=== PATIENT | female | born 1975 | race Caucasian/White ===

== ENCOUNTER → 2020-09-11 13:59 | Outpatient (CLI) | payer OTHER, SELFPAY | PROVIDERS: PCP Family Medicine; Visit Provider Family Medicine | DX: Z03.818 Encounter for observation for suspected exposure to other biological agents ruled out (principal) | CPT/HCPCS: U0003 ==

== ENCOUNTER → 2021-03-13 15:39 | Outpatient (CLI) | payer OTHER, SELFPAY ==
--- NOTE | 2021-03-13 15:39 | MM_ITS ---
PROCEDURE INFORMATION: Exam: MG Screening 3D Mammography Exam date and time: 03/13/2021 3:39 PM Age: 46 years old Clinical indication: Encounter for screening mammogram for malignant neoplasm of breast TECHNIQUE: Imaging protocol: Screening tomosynthesis and 2D mammography including computer-aided detection (CAD) when performed. COMPARISON: No relevant prior studies available. FINDINGS: MAMMOGRAPHY: Breast composition: The breast tissue is composed of scattered areas of fibroglandular density. Mass: None. Architectural distortion: None. Calcifications: No suspicious calcifications. Asymmetric density: None. Skin thickening: None. Axillary adenopathy: None. Implants: Subpectoral saline breast implants are present. IMPRESSION: No mammographic evidence of malignancy. Annual screening is recommended unless otherwise clinically indicated. ASSESSMENT: BI-RADS Category 1: Negative
== END ==
PROVIDERS: PCP Family Medicine; Visit Provider Obstetrics & Gynecology
DX: Z12.31 Encounter for screening mammogram for malignant neoplasm of breast (principal)
CPT/HCPCS: 77063; 77067

== ENCOUNTER → 2022-09-24 10:40 | Outpatient (CLI) | payer OTHER, SELFPAY ==
[2022-09-25 09:13] LABS: Estradiol <5.0 pg/mL (.); LH 61.9 mIU/mL (.)
== END ==
PROVIDERS: PCP Family Medicine; Visit Provider Nurse Practitioner Obstetrics & Gynecology
DX: N95.1 Menopausal and female climacteric states (principal)
CPT/HCPCS: 36415; 82670; 83001; 83002

== ENCOUNTER 2023-11-27 16:24 | Outpatient (CLI) | payer OTHER, SELFPAY ==
--- NOTE | 2023-11-27 16:32 | XR_ITS ---
PROCEDURE INFORMATION: Exam: XR Right Hip Exam date and time: 11/27/2023 4:34 PM Age: 48 years old Clinical indication: Injury or trauma; Blunt trauma (contusions or hematomas); Right; Hip; Patient HX: Fall Thursday TECHNIQUE: Imaging protocol: Radiologic exam of the right hip. Views: 2 or 3 views hip with pelvis when performed. COMPARISON: CR XR LUMBAR SPINE MIN 4V 11/27/2023 4:34 PM FINDINGS: Tubes, catheters and devices: Essure implants bilaterally. Bones/joints: Unremarkable. No acute fracture. Soft tissues: Unremarkable. IMPRESSION: No fracture identified.
--- NOTE | 2023-11-27 16:33 | XR_ITS ---
PROCEDURE INFORMATION: Exam: XR Lumbosacral Spine Exam date and time: 11/27/2023 4:34 PM Age: 48 years old Clinical indication: Injury or trauma; Blunt trauma (contusions or hematomas); Patient HX: Fall Thursday TECHNIQUE: Imaging protocol: Radiologic exam of the lumbosacral spine. Views: 4 or 5 views. COMPARISON: CR XR HIP RT 2-3V W/PELVIS 11/27/2023 4:34 PM FINDINGS: Bones/joints: Normal. No acute fracture. Normal alignment. Soft tissues: Unremarkable. Vasculature: Atherosclerotic vascular calcifications. IMPRESSION: No acute traumatic injury identified.
--- NOTE | 2023-11-27 16:33 | XR_ITS ---
PROCEDURE INFORMATION: Exam: XR Thoracic Spine Exam date and time: 11/27/2023 4:34 PM Age: 48 years old Clinical indication: Injury or trauma; Blunt trauma (contusions or hematomas); Patient HX: Fall Thursday; Additional info: Fall, pain TECHNIQUE: Imaging protocol: Radiologic exam of the thoracic spine. Views: 2 views. COMPARISON: CR XR LUMBAR SPINE MIN 4V 11/27/2023 4:34 PM FINDINGS: Bones/joints: Normal. No acute fracture. Normal alignment. Soft tissues: Unremarkable. IMPRESSION: No acute findings.
== END 2023-11-27 23:59 ==
LOC: RAD 16:25
PROVIDERS: PCP Family Medicine; Visit Provider Nurse Practitioner Family
DX: M25.551 Pain in right hip (principal); M54.50 Low back pain, unspecified; M54.6 Pain in thoracic spine
CPT/HCPCS: 72070; 72110; 73502

== ENCOUNTER 2024-01-23 20:15 | Emergency (ER) | payer OTHER, SELFPAY ==
[2024-01-23] VITALS (8 sets, daily range): BP systolic 111–139; BP diastolic 56–76; PULSE 73–87; RESP 13–22; TEMP 36.6–36.9; O2SAT 97–100; BMI 22.8
--- NOTE | 2024-01-23 20:30 | XR_ITS ---
PROCEDURE INFORMATION: Exam: XR Chest Exam date and time: 01/23/2024 8:45 PM Age: 48 years old Clinical indication: Other: Abdominal pain; Prior surgery; Surgery date: 6+ months; Surgery type: Breast implants; Additional info: Abd pain to chest TECHNIQUE: Imaging protocol: Radiologic exam of the chest. Views: 1 view. COMPARISON: CR XR THORACIC SPINE 2V 11/27/2023 4:34 PM FINDINGS: Lungs: No evidence of acute pulmonary disease or infiltrates Pleural spaces: No large effusion or pneumothorax. Heart/Mediastinum: No evidence of mediastinal widening or cardiac silhouette enlargement; the mediastinum and heart appear within normal limits for contour and size. Bones/joints: No evidence of acute osseous abnormalities within the visualized portions of the thoracic spine and ribs. Osseous structures appear appropriate for patient age. Other findings: The examination is limited by under penetration. IMPRESSION: No dense parenchymal consolidation, pleural effusion, or pneumothorax.
[2024-01-23 20:38] LABS: Microscopic, Urine URINE MICROSCOPIC (MICROSCOPIC)
--- NOTE | 2024-01-23 20:40 | ECG_ITS ---
APPROVED REPORT Exam: Resting ECG HR:79 bpm ECG Measurements Heart Rate 79 AXES VT 164 P 79 QRSd 92 QRS 72 QT 367 T 77 QTc 401 Conclusion SINUS RHYTHM INCOMPLETE RIGHT BUNDLE BRANCH BLOCK [90+ ms QRS DURATION, TERMINAL R IN V1/V2, 40+ ms S IN I/aVL/V4/V5/V6] BORDERLINE ECG UNCONFIRMED REPORT Electronically signed by : DOMINICK BURCH, 01/24/2024 05:54:47
[2024-01-23 20:42] LABS: Appearance,Urine CLEAR (Clear); Bilirubin,Urine Negative (Negative); Blood, Urine Negative (Negative); Color,Urine YELLOW (Yellow); Glucose,Urine (UA) Negative (Negative); Ketones,Urine Negative (Negative); Leukocyte Esterase,Urine Negative (Negative); Nitrate,Urine Negative (Negative); Protein,Urine Negative (Negative); Specific Gravity, Urine >= 1.030 (1.005-1.030); Urobilinogen,Urine 0.2 EU/dl (0.2)
[2024-01-23] MEDS: BELLADONNA ALKALOIDS 60 ML ML PO (20:44)
[2024-01-23] MEDS: KETOROLAC 30MG/ML VIAL 15 MG IV (20:46)
[2024-01-23 20:48] LABS: Basophils # 0.2 K/mm3 (0-0.2); Basophils % 1.7 % (0.1-2.0); Eosinophils # 0.2 K/mm3 (0.0-0.4); Eosinophils % 1.5 % (0.1-12.0); Hematocrit 48.8 % (37.0-47.0); Hemoglobin 15.5 g/dL (12.2-16.2); Lymphocytes % 28.1 % (10-50); Mean Corpuscular HGB Conc 31.8 g/dL (31.8-35.4); Mean Corpuscular Volume 94.5 fl (81-99); Monocytes # 0.4 K/mm3 (0.1-1.0); Monocytes % 3.9 % (1.7-9.3); Neutrophils % 64.8 % (37.0-80.0); Platelet Count 309 K/mm3 (142-424); Red Blood Count 5.16 M/mm3 (4.20-5.40); Red Cell Distribution Width 12.6 % (11.5-17.5); White Blood Count 10.8 K/mm3 (4.8-10.8)
[2024-01-23 20:49] LABS: Chloride 104 mmol/L (98-107); Potassium 3.9 mmoL/L (3.5-5.1); Sodium 138 mmol/L (136-145)
--- NOTE | 2024-01-23 20:50 | ED_ITS ---
Discharge Plan Disposition Patient Disposition: Home, Self-Care Prescriptions Prescriptions: No Action Prilosec OTC 20 mg tablet,delayed release (DR/EC) 20 mg PO DAILY escitalopram oxalate [Lexapro] 20 mg tablet 20 mg PO DAILY Qty: 30 5RF estradiol [Estrace] 2 mg tablet 2 mg PO DAILY Qty: 30 3RF Lo Loestrin Fe 1 mg-10 mcg (24)/10 mcg (2) tablet 0.5 tab PO DAILY Qty: 28 3RF CombiPatch 0.05-0.25 mg/24 hr patch semiweekly 1 patch topical .twice weekly Qty: 8 11RF Referrals Follow up/Referrals: Anuradha Benitez MD [Primary Care Provider] - See instructions Activity Restrictions/Add. Instructions Additional Instructions/Restrictions: Call your family doctor to establish care for this visit to the emergency department and schedule follow-up within 48 hours to ensure improvement. If you have any worsening of your condition or any other concerning signs or symptoms, return to the emergency department or your primary care doctor for further evaluation. If you stop passing gas, unable to have bowel movements, continue vomiting without improvement, or have intolerable abdominal pain, return to the ER. Clinical Impressions Clinical Impression: Abdominal pain Instructions Patient Instructions: DI for Acute Abdominal Pain Discharge ED Provider: Bk Lyons General Adult HPI General Chief complaint: Abdominal Pain Stated complaint: Constant stomach pain,vomiting Time Seen by Provider: 01/23/24 20:23 Mode of Arrival: Ambulatory Source of Information: Patient Limitations: No Limitations Description of Symptoms (Recalled from ER Triage Doc. by RN): Pt has epigastric pain X 1 day. States it is a dull, throbbing, burning type of pain. Pt is A&O*4. History of Present Illness HPI narrative: 48-year-old female history of hypertension, tobacco use presenting with abdominal pain. Patient states that abdominal pain started this morning, 3. Mostly in epigastrium and right upper quadrant, radiates up toward her jaw. It is burning/sharp, intermittent, not made better or worse by anything in particular, not positional. Not associate with shortness of breath, fevers, chills, diarrhea, constipation, dysuria, hematuria, abnormal vaginal discharge or bleeding. Patient does state that she had had of nonbloody vomiting just prior to arrival. No sick contacts he knows of Please note that above description of symptoms, in this electronic medical record under categorization of recalled from ER triage doctor by RN are reflective of an initial nursing assessment, however, is not reflective of my full history and physical exam that was personally taken and clarified. Consequentially, this preceding description of symptoms, which may include the patient's categorized chief complaint in the EMR, do not reflect my personal clinical impression, and the ultimate description of history of present illness and patient stated complaints should be deferred to this section of the note. Unless stated otherwise or congruent with this section of the note, additional signs, symptoms, or incongruence should be interpreted as inaccurate with my clinical impression. Related Data Home Medications Medication Instructions Recorded Confirmed omeprazole magnesium 20 mg 20 mg PO DAILY 11/07/18 01/23/24 tablet,delayed release (Prilosec OTC) Previous Rx's Medication Instructions Recorded norethindrone 1 mg-ethinyl 0.5 tab PO DAILY #28 tabs 03/12/23 estradiol 10 mcg (24)-iron 10 mcg(2) tablet (Lo Loestrin Fe) escitalopram oxalate 20 mg tablet 20 mg PO DAILY #30 tabs 11/02/23 (Lexapro) estradiol 2 mg tablet (Estrace) 2 mg PO DAILY #30 tabs 11/02/23 estradiol 0.05 mg-norethindrone 1 patch topical .twice weekly #8 ea 11/25/23 0.25 mg/24 hr semiwkly transderm patch (CombiPatch) Allergies Allergy/AdvReac Type Severity Reaction Status Date / Time Penicillins Allergy Mild Verified 11/02/23 15:47 [facility] Disclaimer: The information contained in this section may have been updated after the patient was seen, as this information can be updated by other users. Medical History Generalized anxiety disorder Major depressive disorder Surgical History History of bilateral tubal ligation History of D&C History of endometrial ablation Family History Other Diabetes Social History Smoking Status: Current every day smoker tobacco type: cigarettes packs per day: 1 alcohol intake: never substance use type: denies use current occupational status: employed Travel in the last 8 weeks: None household members: family housing: house number of children: 2 ROS Obtained: Yes All systems reviewed & no additional complaints except as documented Physical Exam General General appearance: alert and in no apparent distress Head Head exam: atraumatic and normocephalic Eye Eye exam: Present normal appearance, PERRL and EOMI ENT ENT exam: Present mucous membranes moist Neck Neck exam: Present normal inspection, full ROM and trachea midline Respiratory Respiratory exam: Absent respiratory distress, wheezes, stridor, accessory muscle use or prolonged expiratory phase Cardiovascular Cardiovascular exam: Present regular rate and normal rhythm Abdominal Exam Abdominal exam: Present soft and tenderness; Absent distention, guarding, rebound or rigidity Abdominal tenderness: Present RUQ, LUQ, epigastrium and mild Extremities Exam Extremities exam: Absent edema Neurological Exam Neurological exam: Present alert, oriented X3, CN II-XII intact and normal gait; Absent motor sensory deficit Skin Skin exam: Present warm and dry; Absent diaphoresis or erythema Medical Decision Making Medical Records Medical records reviewed: Yes I reviewed the patient's medical records. Kaushik Inquiry Pt receiving controlled substance: No Kaushik was queried for this patient: No Vital Signs: 01/23/24 20:17 01/23/24 20:27 01/23/24 20:43 Temperature 97.8 F Temperature Source Oral Pulse Rate 87 78 Pulse Rate [Left] 86 Respiratory Rate 19 20 22 Blood Pressure 127/56 L 111/60 Blood Pressure [Right Arm] 127/56 L Blood Pressure Mean 72 76 Blood Pressure Mean [Right Arm] 79 02 Sat by Pulse Oximetry 99 98 100 Oxygen Delivery Method Room Air Room Air Room Air 01/23/24 21:00 01/23/24 21:30 01/23/24 21:45 Temperature Temperature Source Pulse Rate 73 75 78 Pulse Rate [Left] Respiratory Rate 14 22 13 Blood Pressure 124/76 Blood Pressure [Right Arm] Blood Pressure Mean 92 Blood Pressure Mean [Right Arm] 02 Sat by Pulse Oximetry 98 97 97 Oxygen Delivery Method 01/23/24 22:00 01/23/24 23:01 Temperature 98.4 F Temperature Source Pulse Rate 77 75 Pulse Rate [Left] Respiratory Rate 14 16 Blood Pressure 127/73 139/75 Blood Pressure [Right Arm] Blood Pressure Mean 90 Blood Pressure Mean [Right Arm] 02 Sat by Pulse Oximetry 98 Oxygen Delivery Method Room Air Room Air Lab Data Lab Results 01/23/24 20:30: Urine Color Yellow, Urine Appearance Clear, Urine pH 6.0, Ur Specific [place] >= 1.030, Urine Protein Negative, Urine Glucose (UA) Negative, Urine Ketones Negative, Urine Blood Negative, Urine Nitrate Negative, Urine Bilirubin Negative, Urine Urobilinogen 0.2, Ur Leukocyte Esterase Negative, Urine RBC None, Urine WBC 5-10, Ur Squamous Epith Cells 10-20, Amorphous Sediment 1+, Urine Bacteria 2+ 01/23/24 20:32: WBC 10.8, RBC 5.16, Hgb 15.5, Hct 48.8 H, MCV 94.5, MCH 30.0, MCHC 31.8, RDW 12.6, Plt Count 309, MPV 8.0, Neut % (Auto) 64.8, Lymph % (Auto) 28.1, [place] % (Auto) 3.9, Eos % (Auto) 1.5, Baso % (Auto) 1.7, Neut # (Auto) 7.0, Lymph # (Auto) 3.0, [place] # (Auto) 0.4, Eos # (Auto) 0.2, Baso # (Auto) 0.2, Sodium 138, Potassium 3.9, Chloride 104, Carbon Dioxide 29, Anion Gap 8.9, BUN 14, Creatinine 0.80, Estimated Creat Clear 92, Estimated GFR 77, Est GFR ( Amer) 93, Glucose 91, Calcium 9.6, Total Bilirubin 0.4, AST 26, ALT 22, Alkaline Phosphatase 82, Troponin I < 0.01, Total Protein 7.2, Albumin 4.6, Globulin 2.6, Albumin/Globulin Ratio 1.8, Lipase 118 01/23/24 20:32 01/23/24 20:32 Orders (Tests/Meds): ED MEDICATIONS Discontinued Medications Generic Name Dose Route Start Last Admin Trade Name Freq PRN Reason Stop Dose Admin Acetaminophen 1,000 mg 01/23/24 21:47 01/23/24 21:53 Acetaminophen 1,000mg/100ml Vial IV 01/23/24 21:48 1,000 mg ONCE ONE Administration Belladonna Alkaloids 60 ml 01/23/24 20:31 01/23/24 20:44 Belladonna Alkaloids 60 Ml Ml PO 01/23/24 20:32 60 ml ONCE ONE Administration Iopamidol 75 ml 01/23/24 22:39 01/23/24 22:40 Iopamidol-370 (76%);100ml Bottle IV 01/23/24 22:40 75 ml ONCE ONE Administration Ketorolac Tromethamine 15 mg 01/23/24 20:31 01/23/24 20:46 Ketorolac 30mg/Ml Vial IV 01/23/24 20:32 15 mg ONCE ONE Administration Morphine Sulfate 4 mg 01/23/24 22:12 01/23/24 22:20 Morphine 4mg/Ml Syringe IV 01/23/24 22:13 4 mg ONCE ONE Administration Sodium Chloride 10 ml 01/23/24 22:39 01/23/24 22:40 Sodium Chloride 0.9% 10ml Syr (Rad Only) IV 01/23/24 22:40 10 ml ONCE ONE Administration ORDERS Category Date Time Status CT abdomen pelvis w con Stat Cat Scan 01/23/24 22:12 Completed POCUS Point of Care (ER Only) Stat Exams 01/23/24 20:31 Ordered XR chest portable Stat Exams 01/23/24 20:30 Completed Complete Blood Count Auto Diff Stat Lab 01/23/24 20:32 Completed Comprehensive Metabolic Panel Stat Lab 01/23/24 20:32 Completed Lipase Stat Lab 01/23/24 20:32 Completed Troponin I Q3H Lab 01/23/24 23:30 Ordered Troponin I Stat Lab 01/23/24 20:32 Completed Urinalysis and Microscopic Stat Lab 01/23/24 20:30 Completed Urine Culture Stat Micro 01/23/24 20:30 Received HEART Score History (anamnesis): Slightly suspicious ECG: Normal Age: 45-65 years Risk factors: 1-2 risk factors Troponin: </= normal limit HEART Score: 2 Medical Decision Narrative: 48-year-old female history of hypertension, tobacco use presenting with abdominal pain. Patient states that abdominal pain started this morning, 01/22. Mostly in epigastrium and right upper quadrant, radiates up toward her jaw. It is burning/sharp, intermittent, not made better or worse by anything in particular, not positional. Not associate with shortness of breath, fevers, chills, diarrhea, constipation, dysuria, hematuria, abnormal vaginal discharge or bleeding. Patient does state that she had had of nonbloody vomiting just prior to arrival. No sick contacts he knows of. History was obtained via conversation with patient. On arrival, patient hemodynamically stable, alert, oriented x4, appropriate, GCS 15, moving all extremities spontaneously, pupils equal and reactive to light. Full physical exam performed and significant for well-appearing woman in no acute distress. Nontachycardic, normotensive, saturating appropriately on room air. Cardiac exam within normal limits, pulses equal and symmetric. Abdomen is soft, mildly tender in epigastrium and right upper quadrant and left upper quadrant, no pulsatile mass. No evidence of peritonitis. No flank tenderness. Differential includes PUD, gastritis, enteritis, gastroenteritis, pancreatitis, SBO, colitis, diverticulitis, ACS, nephrolithiasis, UTI, , cholecystitis, choledocholithiasis, appendicitis, hepatitis, aortic pathology, mesenteric ischemia among others. Patient was given Toradol, GI cocktail, IV fluids for symptomatic management and correction of underlying abnormalities. Workup independently interpreted and significant for nonactionable CBC, chemistry, lipase, troponin, urine. Overall negative workup. Chest x-ray without acute cardiopulmonary airspace disease. See radiology read for full review of final results. Independent interpretation of EKG shows sinus rhythm 79 beats a minute no ST or T wave changes concerning for acute ischemia. Incomplete right bundle branch block. UT, QRS, QT intervals within normal limits. [place] normal. Heart score 2. On reevaluation, having pain. She was given IV acetaminophen and 4 mg morphine. Bedside ultrasound performed and patient has 1 cm gallstone, but no secondary findings of cholecystitis and no sonographic Cowart sign. CT abdomen pelvis was ordered and demonstrated enteritis, no evidence of bowel obstruction. Given patient presentation, workup, history, this most likely represents enteritis. Because patient at baseline without signs or symptoms of clinical decompensation, deemed appropriate for discharge. Results were relayed to patient who voiced understanding and were agreeable to outpatient management and follow up. I discussed my clinical impression with patient and answered all questions. At this time, the evidence for any other entities in the differential is insufficient to warrant any further testing or ED observation. This was explained as well. Advisory was given that persistent or worsening symptoms require further evaluation. I confirmed the understanding of this discussion. Procedures Limited Ultrasound Indication:: Limited RUQ ultrasound Indication: Abdominal pain Identified structures: -Gallbladder -Gallbladder wall -Common bile duct -Liver Findings: Sonographic Cowart sign: Absent Gallstones: Present Sludge: Absent Pericholecystic fluid: Absent Maximal GB wall thickness (mm) (normal is </= 3mm): Normal Common bile duct width (mm) (normal is </= 6mm): Normal Gallbladder width (cm) (normal is < 4cm): Normal Gallbladder length (cm) (normal is < 10cm): Normal Impression: Cholelithiasis without secondary findings of cholecystitis Images were saved to permanent archive The study was technically adequate CPT 99814-43 This study was performed by me, and I personally interpreted all images/videos. Based on my clinical judgement, these images were adequate and did not necessitate further imaging. Critical Care Critical Care Time Critical Care Time: No
[2024-01-23 20:51] LABS: Blood Urea Nitrogen 14 mg/dl (7-17); Creatinine Clearance Estimated 92 mL/min (50-200); Estimated Glomerular Filt Rate 77 ml/min (>60); GFR (African American) 93 ML/MIN (>60)
[2024-01-23 20:52] LABS: Alanine Aminotransferase 22 U/L (12-78); Albumin Level 4.6 g/dl (3.5-5.0); Albumin/Globulin Ratio 1.8 (1.1-1.8); Alkaline Phosphatase 82 U/L (38-126); Anion Gap 8.9 mEq/L (5-15); Aspartate Amino Transferase 26 U/L (14-36); Bilirubin,Total 0.4 mg/dl (0.2-1.3); Calcium 9.6 mg/dl (8.4-10.2); Carbon Dioxide 29 mmol/L (22.0-30.0); Globulin 2.6 g/dL (1.3-3.2); Glucose 91 mg/dl (74-100); Lipase 118 U/L (23-300); Total Protein,Serum 7.2 g/dl (6.3-8.2)
[2024-01-23 20:57] LABS: Amorphous Sediment,Urine 1+ /lpf; Bacteria,Urine 2+ /lpf
[2024-01-23 21:05] LABS: Troponin I < 0.01 ng/ml (0.00-0.034)
[2024-01-23] MEDS: ACETAMINOPHEN 1,000MG/100ML VIAL 1000 MG IV (21:53)
--- NOTE | 2024-01-23 22:12 | CT_ITS ---
PROCEDURE INFORMATION: Exam: CT Abdomen And Pelvis With Contrast Exam date and time: 01/23/2024 10:27 PM Age: 48 years old Clinical indication: Abdominal pain; Acute; Additional info: Periumbilical pain TECHNIQUE: Imaging protocol: Computed tomography of the abdomen and pelvis with contrast. Radiation optimization: All CT scans at this facility use at least one of these dose optimization techniques: automated exposure control; mA and/or kV adjustment per patient size (includes targeted exams where dose is matched to clinical indication); or iterative reconstruction. Contrast material: ISOVUE; Contrast volume: 75 ml; Contrast route: IV; COMPARISON: 1. CR XR HIP RT 2-3V W/PELVIS 11/27/2023 4:34 PM 2. CR XR LUMBAR SPINE MIN 4V 11/27/2023 4:34 PM 3. CR XR CHEST PORTABLE 01/23/2024 8:45 PM FINDINGS: Lungs: There are scattered areas of emphysema throughout the lungs. Scattered areas of bronchial wall thickening which are likely chronic inflammatory. A few areas of subpleural reticulation are noted, nonspecific. Liver: Normal. Gallbladder and bile ducts: There is cholelithiasis within an otherwise normal gallbladder. Pancreas: Normal. Spleen: Normal. Adrenal glands: The adrenal glands appear normal. Kidneys and ureters: There are no soft tissue renal masses or hydronephrosis. Stomach and bowel: Mild fluid distention of small-bowel loops. Appendix: No evidence of appendicitis. Intraperitoneal space: Unremarkable. Vasculature: There is atherosclerotic disease of the visualized aorta and its major branch vessels. Lymph nodes: No lymphadenopathy. Urinary bladder: Unremarkable as visualized. Reproductive: Bilateral Essure devices in place. Bones/joints: There is diffuse degenerative disease of the visualized osseous structures. Soft tissues: There are bilateral breast implants. IMPRESSION: Mild fluid distention of small bowel loops without a focal point of obstruction, findings could reflect ileus or enteritis but partial small bowel obstruction is not completely excluded.
[2024-01-23] MEDS: MORPHINE 4MG/ML SYRINGE 4 MG IV (22:20)
--- NOTE | 2024-01-23 22:21 | PC.NURSE ---
Pt to CT via stretcher with sales agent insurance
[2024-01-23] MEDS: SODIUM CHLORIDE 0.9% 10ML SYR (RAD ONLY) 10 ML IV (22:40)
[2024-01-23] MEDS: IOPAMIDOL-370 (76%);100ML BOTTLE 75 ML IV (22:40)
--- NOTE | 2024-01-27 11:21 | PC.NURSE ---
urine culture results discussed with , contaminated, NTD
== END 2024-01-23 23:08 | disposition home or self-care (01) ==
PROVIDERS: Emergency Provider Emergency Medicine; PCP Family Medicine
DX: R10.13 Epigastric pain (principal); B96.89 Other specified bacterial agents as the cause of diseases classified elsewhere; K80.20 Calculus of gallbladder without cholecystitis without obstruction; R11.2 Nausea with vomiting, unspecified; F17.210 Nicotine dependence, cigarettes, uncomplicated; I10 Essential (primary) hypertension
CPT/HCPCS: 71045; 74177; 80053; 81001; 83690; 84484; 85025; 87086; 93005; 96374; 96375; 99285; J0131; Q9967

== ENCOUNTER 2024-05-16 13:23 | Outpatient (CLI) | payer OTHER, SELFPAY ==
[2024-05-16 14:00] LABS: Basophils % 0.3 % (0.1-2.0); Eosinophils # 0.2 K/mm3 (0.0-0.4); Eosinophils % 1.7 % (0.1-12.0); Hematocrit 45.8 % (37.0-47.0); Hemoglobin 14.8 g/dL (12.2-16.2); Lymphocytes # 3.4 K/mm3 (0.7-4.5); Lymphocytes % 39.3 % (10-50); Mean Corpuscular HGB Conc 32.3 g/dL (31.8-35.4); Mean Corpuscular Hemoglobin 30.6 pg (27.0-31.2); Mean Platelet Volume 7.9 fl (7.4-10.4); Monocytes # 0.3 K/mm3 (0.1-1.0); Monocytes % 3.7 % (1.7-9.3); Neutrophils # 4.8 K/mm3 (1.8-7.8); Platelet Count 288 K/mm3 (142-424); Red Blood Count 4.82 M/mm3 (4.20-5.40); White Blood Count 8.7 K/mm3 (4.8-10.8)
[2024-05-16 14:05] LABS: Activated Partial Thrombo Time 26.8 seconds (22.8-30.6); INR 0.93 (0.9-1.1); Prothrombin Time 10.5 seconds (10.1-12.5)
[2024-05-16 14:14] LABS: Alanine Aminotransferase 15 U/L (12-78); Albumin Level 3.8 g/dl (3.5-5.0); Albumin/Globulin Ratio 1.7 (1.1-1.8); Alkaline Phosphatase 84 U/L (38-126); Anion Gap 8.6 mEq/L (5-15); Aspartate Amino Transferase 17 U/L (14-36); Bilirubin,Total 0.2 mg/dl (0.2-1.3); Blood Urea Nitrogen 12 mg/dl (7-17); Calcium 9.4 mg/dl (8.4-10.2); Carbon Dioxide 27 mmol/L (22.0-30.0); Chloride 106 mmol/L (98-107); Estimated Glomerular Filt Rate 76 ml/min (>60); GFR (African American) 92 ML/MIN (>60); Globulin 2.3 g/dL (1.3-3.2); Glucose 95 mg/dl (74-100); Potassium 4.6 mmoL/L (3.5-5.1); Sodium 137 mmol/L (136-145); Total Protein,Serum 6.1 g/dl (6.3-8.2)
== END 2024-05-16 23:59 | disposition home or self-care (01) ==
LOC: LAB 13:25
PROVIDERS: Plastic Surgery; PCP Family Medicine; Visit Provider Plastic Surgery
DX: Z01.812 Encounter for preprocedural laboratory examination (principal); D68.8 Other specified coagulation defects
CPT/HCPCS: 36415; 80053; 85025; 85610; 85730

== ENCOUNTER 2024-12-01 06:13 | Day surgery (SDC) | payer OTHER, SELFPAY ==
[2024-12-01 06:50] VITALS: BMI 22.8
[2024-12-01 06:57] VITALS: BP 116/71; PULSE 72; RESP 18; TEMP 36.2; O2SAT 98
--- NOTE | 2024-12-01 07:17 | P.PNANES_ITS ---
[facility] Disclaimer: The information contained in this section may have been updated after the patient was seen, as this information can be updated by other users. Medical History Generalized anxiety disorder Major depressive disorder Surgical History History of bilateral tubal ligation History of D&C History of endometrial ablation Family History Other Diabetes Social History (Updated 12/01/24 @ 06:57 by Tomasz Merrill RN) Smoking Status: Current every day smoker tobacco type: cigarettes packs per day: 1 alcohol intake: never substance use type: denies use current occupational status: employed Travel in the last 8 weeks: Inside the [place] household members: family housing: house number of children: 2 Have you lived/traveled outside [place] in past 30 days?: No Contact w/someone who lives/traveled outside US past 30 days?: No Exposure to someone with infectious disease in past 14 days?: No Do you have a fever (greater than 100.4 F or 38 C)?: No Have you tested positive for COVID-19: No Exposed to someone with COVID-19 in past 14 days?: No Do you have a sore throat?: No Do you have a cough?: No Do you have any weakness?: No Are you experiencing any nausea/vomitting?: No Do you have any diarrhea?: No Are you experiencing any unusual bleeding?: No Do you have any muscle aches/pain?: No Do you have any abdominal pain?: No Are you experiencing loss of taste or smell?: No [facility] Anesthesia Checklist Patient Identification Patient Identification: Arm Band Structural Data Admitted From: Home Planned Operative Procedure/s: Colonoscopy Consent for Planned Operative Procedure(s) Verified: Yes Verified Documents: Surgical Consent and History and Physical NPO Status Verified Time NPO: 03:00 (finished prep) Additional verifications Anesthesia Reactions: No Airway Assessment Mallampati Score:: Class II C-Spine Mobility Assessed: Yes TMJ Mobility Assessed: Yes Dentition: Good Dentition Neurological Assessment Level of Consciousness: Awake, Alert and Appropriate Anesthesia Plan Anesthesia Risk discussed: Yes Anesthesia Plan: Verified ASA Class: II Anesthesia Type: MAC
--- NOTE | 2024-12-01 07:25 | P.HP_ITS ---
History of Present Illness *Admission Date: 12/01/24 *History of present illness: Mrs. Felix is a 49-year-old female who is here for initial screening colonoscopy. The examination is deemed medically necessary for screening colonoscopy. The patient has been seen, interviewed and examined prior to the procedure by both myself and the anesthesia provider. [facility] Disclaimer: The information contained in this section may have been updated after the patient was seen, as this information can be updated by other users. Medical History Generalized anxiety disorder Major depressive disorder Surgical History History of bilateral tubal ligation History of D&C History of endometrial ablation Family History Other Diabetes Social History (Updated 12/01/24 @ 06:57 by Tomasz Merrill RN) Smoking Status: Current every day smoker tobacco type: cigarettes packs per day: 1 alcohol intake: never substance use type: denies use current occupational status: employed Travel in the last 8 weeks: Inside the [place] household members: family housing: house number of children: 2 Have you lived/traveled outside US in past 30 days?: No Contact w/someone who lives/traveled outside US past 30 days?: No Exposure to someone with infectious disease in past 14 days?: No Do you have a fever (greater than 100.4 F or 38 C)?: No Have you tested positive for COVID-19: No Exposed to someone with COVID-19 in past 14 days?: No Do you have a sore throat?: No Do you have a cough?: No Do you have any weakness?: No Are you experiencing any nausea/vomitting?: No Do you have any diarrhea?: No Are you experiencing any unusual bleeding?: No Do you have any muscle aches/pain?: No Do you have any abdominal pain?: No Are you experiencing loss of taste or smell?: No Other Medical History Have you received the Flu Vaccine for this season: No Have you received the Pneumonia Vaccine: No Review of Systems Review of Systems Review of systems (narrative): Negative *Cardiovascular Comments: Negative *Gastrointestinal Comments: Negative *Genitourinary Comments: Negative *Musculoskeletal Comments: Negative *Neurologic Comments: Negative Meds Home Medications and Allergies Home Medications ?Medication ?Instructions ?Recorded ?Confirmed ?Type omeprazole magnesium 20 mg 20 mg PO DAILY 11/07/18 12/01/24 History tablet,delayed release (Prilosec OTC) fluoxetine 20 mg capsule 20 mg PO DAILY 06/15/24 12/01/24 History lamotrigine 100 mg tablet 100 mg PO DAILY 06/15/24 12/01/24 History progesterone micronized 100 mg 100 mg PO DAILY 21 days #21 caps 06/15/2404/19 Rx capsule (Prometrium) trazodone 50 mg tablet 50 mg PO DAILY PRN depression 06/15/24 12/01/24 History estradiol 2 mg tablet (Estrace) 2 mg PO DAILY #30 tabs 07/20/24 12/01/24 Rx New Prescriptions to Start Prescriptions: Allergies Allergy/AdvReac Type Severity Reaction Status Date / Time Penicillins Allergy Mild Verified 06/15/24 10:56 Exam Data for Last 24 hours Vital signs and Labs for Last 24 Hours: Temp Pulse Resp BP Pulse Ox O2 Del Method 97.2 F L 72 18 116/71 98 Room Air 12/01/24 06:57 12/01/24 06:57 12/01/24 06:57 12/01/24 06:57 12/01/24 06:57 12/01/24 06:57 I & O for Last 24 hours: Intake & Output 11/28/24 11/29/24 11/30/24 12/01/24 23:59 23:59 23:59 23:59 Weight 150 lb *Routine HEENT Exam Head: Present normocephalic Eye: Present EOMI and PERRL ENT: Present mucous membranes moist *Routine Neck Exam Neck: Present supple *Routine Respiratory Exam Respiratory: Present CTA bilaterally *Routine Cardiovascular Exam Cardiovascular: Present RRR *Routine Abdominal Exam Abdominal: Present soft and normoactive bowel sounds; Absent tenderness *Routine Rectal Exam Rectal:: deferred *Routine Genitalia Exam Genitalia:: deferred *Routine Extremities Exam Extremities: Absent cyanosis, clubbing or edema *Routine Skin Exam Skin: Present warm; Absent rash *Routine Neurological Exam Neurological: Present alert and oriented X3 Assessment and Plan *Assessment and plan (1) Screening for colon cancer: Status: Acute Category: Medical Code(s): Z12.11 - Encounter for screening for malignant neoplasm of colon Plan A/P: 1. Screening for colon cancer is the preprocedural diagnosis. The patient will be anesthetized/sedated using MAC sedation. The patient has been seen and examined. Cardiac and lung assessment prior to the examination is stable. Proceed with planned screening colonoscopy
--- NOTE | 2024-12-01 07:29 | P.PCN_ITS ---
[facility] Procedure Note Date: 12/01/24 Time: 07:47 Procedure Note:: Colonoscopy Procedure Report: Colonoscopy Endoscopist: Ramone Muller II, MD Referring physician: Savita Benitez M.D. Date of Procedure: December 01, 2024 Equipment: Olympus 190 variable stiffness pediatric colonoscope Sedation: MAC sedation Indication: Mrs. Felix is a 49-year-old female who is here for initial screening colonoscopy. She reports no abdominal pain, weight loss, change in her bowel habits or rectal bleeding. She reports no family history of colon cancer. Procedure: Prior to the procedure, a history and physical exam was performed, and patient's medications and allergies were reviewed. The risks, benefits and alternatives of the sedation and procedure were discussed with the patient. All questions were answered and informed consent was obtained. The patient was brought to the procedure room. Patient identification and proposed procedure were verified by the physician and the nurse. The patient was placed in a left lateral decubitus position and the scope was passed under direct vision. Throughout the procedure, the patient's blood pressure, pulse, and oxygen saturations were monitored continuously. The colonoscopy was accomplished without difficulty. The patient tolerated the procedure well. Findings: On digital rectal examination there was normal rectal tone. There were no external hemorrhoids. The colonoscope was introduced through the anal canal to the rectum and advanced to the cecum. The ileocecal valve and appendiceal orifice were identified. The scope was advanced a short distance into the ileum which appeared grossly normal. The scope was then withdrawn into the colon. The cecum, ascending and transverse colon and mucosa were grossly normal. There were scattered diverticuli throughout the descending and sigmoid colon (LEFT colon). The rectum itself was normal. Upon retroflexion within the rectum there were grade 1 internal hemorrhoids. The preparation was excellent throughout with [place] Preparation Score of 9. The cecal time was 12 minutes. Impression: 1. Left-sided diverticulosis 2. Grade 1 internal hemorrhoids Plan: The patient will not require surveillance colonoscopy again for 10 years by ACS guidelines. I would encourage psyllium fiber supplementation on a long-term daily maintenance basis.
[2024-12-01 07:30] VITALS: O2SAT 98
[2024-12-01 07:51] VITALS: BP 111/75; PULSE 72; RESP 16; TEMP 36.6; O2SAT 98
[2024-12-01 08:01] VITALS: BP 126/64; PULSE 63; RESP 16; O2SAT 98
[2024-12-01 08:11] VITALS: BP 123/78; PULSE 64; RESP 16; O2SAT 100
[2024-12-01 08:21] VITALS: BP 109/64; PULSE 62; RESP 16; O2SAT 100
== END 2024-12-01 08:29 | disposition home or self-care (01) ==
PROVIDERS: PCP Family Medicine; Visit Provider Internal Medicine Gastroenterology
PROC: 0DJD8ZZ Inspection of Lower Intestinal Tract, Via Natural or Artificial Opening Endoscopic (ICD-10-PCS; CPT 45378; principal; 2024-12-01 07:30)
DX: K57.30 Diverticulosis of large intestine without perforation or abscess without bleeding (principal); K64.0 First degree hemorrhoids; Z12.11 Encounter for screening for malignant neoplasm of colon
CPT/HCPCS: 45378

== ENCOUNTER 2024-12-31 12:20 | Emergency (ER) | payer OTHER, SELFPAY ==
[2024-12-31 12:22] VITALS: BP 103/55; PULSE 75; RESP 18; TEMP 37; O2SAT 98; BMI 22.8
--- NOTE | 2024-12-31 12:32 | PC.NURSE ---
Francois MCINTYRE APRN AT BEDSIDE
--- NOTE | 2024-12-31 12:35 | ECG_ITS ---
APPROVED REPORT Exam: Resting ECG HR:65 bpm ECG Measurements Heart Rate 65 AXES NH 156 P 78 QRSd 99 QRS 81 QT 386 T 76 QTc 398 Conclusion SINUS RHYTHM INDETERMINATE AXIS INCOMPLETE RIGHT BUNDLE BRANCH BLOCK [90+ ms QRS DURATION, TERMINAL R IN V1/V2, 40+ ms S IN I/aVL/V4/V5/V6] BORDERLINE ECGUNCONFIRMED REPORT Electronically signed by : ELIANE JENSEN, 01/03/2025 23:41:24
--- NOTE | 2024-12-31 12:40 | CT_ITS ---
PROCEDURE INFORMATION: Exam: CT Abdomen And Pelvis With Contrast Exam date and time: 12/31/2024 1:24 PM Age: 49 years old Clinical indication: Abdominal pain; Generalized; Additional info: Abd pain TECHNIQUE: Imaging protocol: Computed tomography of the abdomen and pelvis with contrast. Radiation optimization: All CT scans at this facility use at least one of these dose optimization techniques: automated exposure control; mA and/or kV adjustment per patient size (includes targeted exams where dose is matched to clinical indication); or iterative reconstruction. Contrast material: ISOVUE; Contrast volume: 75 ml; Contrast route: IV; COMPARISON: CT ABDOMEN PELVIS W CON 23/01/2024 22:27 FINDINGS: Tubes, catheters and devices: Bilateral fallopian tube closure devices. Lungs: Mild centrilobular emphysema. Liver: Normal. No mass. Gallbladder and biliary ducts: Stone(s) in the gallbladder. Pancreas: Normal. No ductal dilation. Spleen: Normal. No splenomegaly. Adrenal glands: Normal. No mass. Kidneys and ureters: Normal. No hydronephrosis. Stomach and bowel: Unremarkable. No obstruction. No mucosal thickening. Appendix: No evidence of appendicitis. Intraperitoneal space: Unremarkable. No free air. No significant fluid collection. Vasculature: Atherosclerosis. Lymph nodes: Unremarkable. No enlarged lymph nodes. Urinary bladder: Unremarkable as visualized. Reproductive: Unremarkable as visualized. Bones/joints: Unremarkable. No acute fracture. Soft tissues: Partially imaged breast implants. Scarring in the bilateral subcutaneous fat. IMPRESSION: 1. Mild centrilobular emphysema. 2. Stone(s) in the gallbladder. 3. Atherosclerosis. 4. Additional chronic/nonemergent findings as detailed above.
--- NOTE | 2024-12-31 12:41 | ED_ITS ---
<Statement entered by Deuce Hsu MD - 01/08/25 15:26> I was consulted by the WILBERTO, and we discussed the complexity of the problems being addressed. I approved the treatment and management plan for this patient's care in the emergency department, thus performing a substantive portion of the medical decision making. Deuce Hsu MD, JOSEFINA, FACEP Discharge Plan Disposition Patient Disposition: Home, Self-Care Condition: Good Prescriptions Prescriptions: New ondansetron 4 mg tablet,disintegrating 4 mg PO Q8H PRN (Reason: nausea and vomiting) Qty: 10 0RF No Action Prilosec OTC 20 mg tablet,delayed release (DR/EC) 20 mg PO DAILY trazodone 50 mg tablet 50 mg PO DAILY PRN (Reason: depression) fluoxetine 20 mg capsule 20 mg PO DAILY lamotrigine 100 mg tablet 100 mg PO DAILY progesterone micronized [Prometrium] 100 mg capsule 100 mg PO DAILY 21 Days Qty: 21 11RF Rx Instructions: off 7 days; repeat cycle estradiol [Estrace] 2 mg tablet 2 mg PO DAILY Qty: 30 11RF Referrals Follow up/Referrals: Anuradha Benitez MD [Primary Care Provider] - See instructions Clinical Impressions Clinical Impression: Abdominal pain, Gallstones, Influenza A Instructions Patient Instructions: DI for Acute Abdominal Pain Print Language Print Language: Malay Discharge ED Provider: eDuce Hsu General Adult HPI General Chief complaint: Abdominal Pain Stated complaint: fever, H/A, abd pain, B/A Time Seen by Provider: 12/31/24 12:31 Mode of Arrival: Ambulatory Source of Information: Patient Description of Symptoms (Recalled from ER Triage Doc. by RN): Patient presents ambulatory to triage with her . States she feels that she has the flu. Also states that she had a colonscopy Dec.01 and has been constipated since. Patient states she that she also feels food retained in her esophagus and states it is difficult to swallow. The patient states she is scheduled to see Dr. Muller in January, but states she cannot make it until then. History of Present Illness HPI narrative: 49-year-old female presents to the emergency room with multiple complaints such as epigastric pain that radiates into the back, difficulties swallowing, abdominal pain around the umbilical area. Patient states the symptoms have been going on for many weeks but it seems to be getting worse. Related Data Home Medications ?Medication ?Instructions ?Recorded ?Confirmed omeprazole magnesium 20 mg 20 mg PO DAILY 11/07/18 12/01/24 tablet,delayed release (Prilosec OTC) fluoxetine 20 mg capsule 20 mg PO DAILY 06/15/24 12/01/24 lamotrigine 100 mg tablet 100 mg PO DAILY 06/15/24 12/01/24 trazodone 50 mg tablet 50 mg PO DAILY PRN depression 06/15/24 12/01/24 Previous Rx's ?Medication ?Instructions ?Recorded progesterone micronized 100 mg 100 mg PO DAILY 21 days #21 caps 06/15/24 capsule (Prometrium) estradiol 2 mg tablet (Estrace) 2 mg PO DAILY #30 tabs 07/20/24 ondansetron 4 mg disintegrating 4 mg PO Q8H PRN nausea and 12/31/24 tablet vomiting #10 tabs Allergies Allergy/AdvReac Type Severity Reaction Status Date / Time Penicillins Allergy Mild Verified 06/15/24 10:56 [facility] Disclaimer: The information contained in this section may have been updated after the patient was seen, as this information can be updated by other users. Medical History (Reviewed 12/31/24 @ 13:24 by Bogdan Rosenberg ([facility]), POLITICAL CONSULTANT) Generalized anxiety disorder Major depressive disorder Surgical History (Reviewed 12/31/24 @ 13:24 by Bogdan Rosenberg ([facility]), POLITICAL CONSULTANT) History of bilateral tubal ligation History of D&C History of endometrial ablation Family History (Reviewed 12/31/24 @ 13:24 by Bogdan Rosenberg ([facility]), POLITICAL CONSULTANT) Diabetes Social History (Reviewed 12/31/24 @ 13:24 by Bogdan Rosenberg ([facility]), POLITICAL CONSULTANT) Smoking Status: Former smoker tobacco type: cigarettes packs per day: 1 alcohol intake: never substance use type: denies use current occupational status: employed Travel in the last 8 weeks: [place] the [place] household members: family housing: house number of children: 2 Have you lived/traveled outside US in past 30 days?: No Contact w/someone who lives/traveled outside US past 30 days?: No Exposure to someone with infectious disease in past 14 days?: No Do you have a fever (greater than 100.4 F or 38 C)?: Yes Have you tested positive for COVID-19: No Exposed to someone with COVID-19 in past 14 days?: No Do you have a sore throat?: No Do you have a cough?: No Do you have any weakness?: No Do you have any diarrhea?: No Are you experiencing any unusual bleeding?: No Do you have any muscle aches/pain?: No Do you have any abdominal pain?: Yes Are you experiencing loss of taste or smell?: No Other Medical History Have you received the Flu Vaccine for this season: No Have you received the Pneumonia Vaccine: No ROS Obtained: Yes Systems reviewed as appropriate & no additional complaints except as documented Gastrointestinal Gastrointestingal: Reports system reviewed and no additional complaints, except as documented, as per HPI, abdominal pain, change in bowel habits and constipation Physical Exam General General appearance: alert and in no apparent distress Head Head exam: atraumatic Eye Eye exam: Present normal appearance ENT ENT exam: Present normal exam Respiratory Respiratory exam: Present normal lung sounds bilaterally Cardiovascular Cardiovascular exam: Present regular rate and normal rhythm Abdominal Exam Abdominal exam: Present soft, tenderness and normal bowel sounds Abdominal tenderness: Present epigastrium Neurological Exam Neurological exam: Present alert and oriented X3 Skin Skin exam: Present warm and intact Medical Decision Making Medical Records Medical records reviewed: Yes I reviewed the patient's medical records. Screening: Per USPSTF and CDC recommendations, given the prevalence of disease in our region, it is our hospital?s policy to screen for HIV and viral Hepatitis for all patients aged 18 and over and those with ongoing risk factors. Kaushik Inquiry Pt receiving controlled substance: No Kaushik was queried for this patient: No Vital Signs: 12/31/24 12:22 12/31/24 13:30 12/31/24 14:00 Temperature 98.6 F Temperature Source Oral Pulse Rate 68 64 Pulse Rate [Radial] 75 Respiratory Rate 18 Blood Pressure 116/61 104/57 L Blood Pressure [R Arm] 103/55 L Blood Pressure Mean Blood Pressure Mean [R Arm] 71 Blood Pressure Source [R Arm] Automatic Cuff 02 Sat by Pulse Oximetry 98 98 98 Oxygen Delivery Method Room Air Room Air Room Air 12/31/24 14:30 Temperature Temperature Source Pulse Rate 75 Pulse Rate [Radial] Respiratory Rate 18 Blood Pressure 87/50 L Blood Pressure [R Arm] Blood Pressure Mean 60 Blood Pressure Mean [R Arm] Blood Pressure Source [R Arm] 02 Sat by Pulse Oximetry 98 Oxygen Delivery Method Lab Data Lab results reviewed: Yes I reviewed the patient's lab results. Lab Results 12/31/24 12:30: Urine Color Yellow, Urine Appearance Clear, Urine pH 6.0, Ur Specific Sherman >= 1.030, Urine Protein Trace, Urine Glucose (UA) Negative, Urine Ketones Trace, Urine Blood Negative, Urine Nitrate Negative, Urine Bilirubin 1+ A, Urine Urobilinogen 0.2, Ur Leukocyte Esterase Negative, Urine RBC None, Urine WBC Occasional, Ur Squamous Epith Cells 10-20, Urine Bacteria Trace 12/31/24 12:40: WBC 6.8, RBC 5.33, Hgb 15.3, Hct 47.0, MCV 88.2, MCH 28.7, MCHC 32.6, RDW 13.2, Plt Count 238, MPV 9.3, Neut % (Auto) 71.4, Lymph % (Auto) 16.3, Mcclain % (Auto) 11.8 H, Eos % (Auto) 0.0 L, Baso % (Auto) 0.4, Neut # (Auto) 4.9, Lymph # (Auto) 1.1, Mcclain # (Auto) 0.8, Eos # (Auto) 0.0, Baso # (Auto) 0.0, S odium 133 L, Potassium 4.0, Chloride 101, Carbon Dioxide 28, Anion Gap 8.0, BUN 12, Creatinine 0.80, Estimated Creat Clear 91, Estimated GFR 76, Est GFR ( Amer) 92, Glucose 103 H, Calcium 9.3, Total Bilirubin 0.3, AST 23, ALT 19, Alkaline Phosphatase 56, Troponin I < 0.01, Total Protein 7.2, Albumin 4.8, Globulin 2.4, Albumin/Globulin Ratio 2.0 H, Amylase 45, Lipase 45 12/31/24 12:42: SARS-CoV-2 (PCR) Not detected, Influenza A Untype (PCR) Detected A, Influenza Type B (PCR) Not detected 12/31/24 12:40 12/31/24 12:40 Orders (Tests/Meds): ED MEDICATIONS Discontinued Medications Generic Name Dose Route Start Last Admin Trade Name Freq PRN Reason Stop Dose Admin Belladonna Alkaloids 60 ml 12/31/24 12:35 12/31/24 12:57 Belladonna Alkaloids 60 Ml Ml PO 12/31/24 12:36 60 ml ONCE ONE Administration Sodium Chloride 500 mls @ 999 mls/hr 12/31/24 13:31 12/31/24 13:41 Sod Chlor 0.9% 1000ml Bag IV 12/31/24 14:01 999 mls/hr .Q31M ONE Administration Iopamidol 75 ml 12/31/24 13:28 12/31/24 13:28 Iopamidol-370 (76%);100ml Bottle IV 12/31/24 13:29 75 ml ONCE ONE Administration Sodium Chloride 10 ml 12/31/24 13:28 12/31/24 13:28 Sodium Chloride 0.9% 10ml Syr (Rad Only) IV 12/31/24 13:29 10 ml ONCE ONE Administration ORDERS Category Date Time Status CT abdomen pelvis w con Stat Cat Scan 12/31/24 12:40 Completed Amylase Stat Lab 12/31/24 12:40 Completed CBC [Complete Blood Count Auto Diff] Stat Lab 12/31/24 12:40 Completed CMP [Comprehensive Metabolic Panel] Stat Lab 12/31/24 12:40 Completed Lipase Stat Lab 12/31/24 12:40 Completed Rapid PCR Covid and Flu A/B Stat Lab 12/31/24 12:42 Completed Trop I [Troponin I] Stat Lab 12/31/24 12:40 Completed Troponin I Q3H Lab 12/31/24 15:45 Ordered Troponin I Q3H Lab 12/31/24 18:45 Ordered UA [Urinalysis and Microscopic] Stat Lab 12/31/24 12:30 Completed 12-lead EKG Request [ECG Request] Stat Y 12/31/24 12:35 Ordered Medical Decision Narrative: In summary patient is a 49 female who presents to the emergency department for evaluation for multiple complaints such as epigastric pain that radiates into the back, difficulties swallowing, abdominal pain around the umbilical area. Patient states the symptoms have been going on for many weeks but it seems to be getting worse, pt states flu like symptoms that started last pm. Patient is hemodynamically stable upon arrival. physical exam: Epigastric tenderness, tender around umbilicus Differential diagnosis includes gall bladder attack- hx of gallstones, flu, gastritis, surekha stricture and ulcer. Initial workup will be conducted with Labs slightly low sodium-IV fluids given. Initial inventions include iv fluids, gi cocktail. Initial workup reviewed by me, labs slightly low sodium- iv given, flu a +, gallstones- pt aware. Resting comfortable in bed. Given this likely essentially just about everything patient labs unremarkable will discharge with close follow-up with Dr. Muller. I contacted Dr. Muller he will be back in the office 01/08 patient is to call on Thursday and he will work her in sooner. I informally interpreted patient's ct report no acute findings- gallstones- chronic- pt aware Critical Care Critical Care Time Critical Care Time: No
[2024-12-31 12:49] LABS: Basophils % 0.4 % (0.1-2.0); Hemoglobin 15.3 g/dL (12.2-16.2); Lymphocytes # 1.1 K/mm3 (0.7-4.5); Lymphocytes % 16.3 % (10-50); Mean Corpuscular HGB Conc 32.6 g/dL (31.8-35.4); Mean Corpuscular Hemoglobin 28.7 pg (27.0-31.2); Mean Corpuscular Volume 88.2 fl (81-99); Mean Platelet Volume 9.3 fl (7.4-10.4); Monocytes # 0.8 K/mm3 (0.1-1.0); Monocytes % 11.8 % (1.7-9.3); Neutrophils # 4.9 K/mm3 (1.8-7.8); Neutrophils % 71.4 % (37.0-80.0); Platelet Count 238 K/mm3 (142-424); Red Blood Count 5.33 M/mm3 (4.20-5.40); Red Cell Distribution Width 13.2 % (11.5-17.5); White Blood Count 6.8 K/mm3 (4.8-10.8)
[2024-12-31] MEDS: BELLADONNA ALKALOIDS 60 ML ML PO (12:57)
[2024-12-31 13:01] LABS: Coronavirus 19, PCR Not Detected (NotDetected); Influenza B, PCR Not Detected (NotDetected)
[2024-12-31 13:01] LABS: Alanine Aminotransferase 19 U/L (12-78); Albumin Level 4.8 g/dl (3.5-5.0); Alkaline Phosphatase 56 U/L (38-126); Amylase 45 U/L (30-110); Aspartate Amino Transferase 23 U/L (14-36); Bilirubin,Total 0.3 mg/dl (0.2-1.3); Blood Urea Nitrogen 12 mg/dl (7-17); Calcium 9.3 mg/dl (8.4-10.2); Carbon Dioxide 28 mmol/L (22.0-30.0); Chloride 101 mmol/L (98-107); Creatinine Clearance Estimated 91 mL/min (50-200); Estimated Glomerular Filt Rate 76 ml/min (>60); GFR (African American) 92 ML/MIN (>60); Globulin 2.4 g/dL (1.3-3.2); Glucose 103 mg/dl (74-100); Lipase 45 U/L (23-300); Sodium 133 mmol/L (136-145); Total Protein,Serum 7.2 g/dl (6.3-8.2)
[2024-12-31 13:05] LABS: Microscopic, Urine URINE MICROSCOPIC (MICROSCOPIC)
[2024-12-31 13:06] LABS: Appearance,Urine CLEAR (Clear); Blood, Urine Negative (Negative); Color,Urine YELLOW (Yellow); Glucose,Urine (UA) Negative (Negative); Ketones,Urine TRACE (Negative); Leukocyte Esterase,Urine Negative (Negative); Nitrate,Urine Negative (Negative); Protein,Urine TRACE (Negative); Specific Gravity, Urine >= 1.030 (1.005-1.030); Urobilinogen,Urine 0.2 EU/dl (0.2)
[2024-12-31 13:07] LABS: Bilirubin,Urine 1+ (Negative)
[2024-12-31 13:12] LABS: Bacteria,Urine Trace /lpf; WBC,Urine Occasional #/hpf (0-3)
[2024-12-31 13:13] LABS: Troponin I < 0.01 ng/ml (0.00-0.034)
[2024-12-31] MEDS: IOPAMIDOL-370 (76%);100ML BOTTLE 75 ML IV (13:28)
[2024-12-31] MEDS: SODIUM CHLORIDE 0.9% 10ML SYR (RAD ONLY) 10 ML IV (13:28)
[2024-12-31 13:30] VITALS: BP 116/61; PULSE 68; O2SAT 98
[2024-12-31] MEDS: 0.9 % SODIUM CHLORIDE 1000ML 500 ML 999 ML IV (13:41)
[2024-12-31 13:59] LABS: Influenza A, PCR Detected (NotDetected)
[2024-12-31 14:00] VITALS: BP 104/57; PULSE 64; O2SAT 98
[2024-12-31 14:30] VITALS: BP 87/50; PULSE 75; RESP 18; O2SAT 98
[2024-12-31 15:11] VITALS: BP 110/80; PULSE 80; RESP 20; TEMP 36.9; O2SAT 98
== END 2024-12-31 15:12 | disposition home or self-care (01) ==
PROVIDERS: Nurse Practitioner Family; Emergency Provider Student in an Organized Health Care Education/Training Program; PCP Family Medicine
DX: J10.1 Influenza due to other identified influenza virus with other respiratory manifestations (principal); R10.13 Epigastric pain; R13.10 Dysphagia, unspecified; F17.210 Nicotine dependence, cigarettes, uncomplicated
CPT/HCPCS: 74177; 80053; 81001; 82150; 83690; 84484; 85025; 87636; 93005; 96360; 99285; J7030; Q9967

== ENCOUNTER 2025-01-04 14:08 | Outpatient (CLI) | payer OTHER, SELFPAY ==
[2025-01-04 14:43] LABS: Urine Pregnancy, HCG Qual. Negative (Negative)
== END 2025-01-04 23:59 | disposition home or self-care (01) ==
LOC: PREOP 14:09
PROVIDERS: Nurse Anesthetist, Certified Registered; PCP Family Medicine; Visit Provider Surgery
DX: Z01.812 Encounter for preprocedural laboratory examination (principal)
CPT/HCPCS: 81025

== ENCOUNTER 2025-01-12 06:08 | Day surgery (SDC) | payer OTHER, SELFPAY ==
[2025-01-04 14:23] VITALS: BMI 22.1
[2025-01-04 14:43] LABS: Urine Pregnancy, HCG Qual. Negative (Negative)
[2025-01-12] VITALS (13 sets, daily range): BP systolic 100–139; BP diastolic 47–84; PULSE 56–66; RESP 12–18; TEMP 36.1–37.2; O2SAT 93–96
[2025-01-12] MEDS: 0.9 % SODIUM CHLORIDE 1000ML 1,000 ML 25 ML IV (06:25)
--- NOTE | 2025-01-12 06:52 | EXP.ANES.CKL ---
[facility] Disclaimer: The information contained in this section may have been updated after the patient was seen, as this information can be updated by other users. Medical History Right upper quadrant pain Generalized anxiety disorder Major depressive disorder Surgical History History of bilateral tubal ligation History of D&C History of endometrial ablation Family History Other Diabetes Social History Smoking Status: Current every day smoker tobacco type: cigarettes packs per day: 1 alcohol intake: never substance use type: denies use current occupational status: employed Travel in the last 8 weeks: [place] the [place] household members: family housing: house number of children: 2 Have you lived/traveled outside US in past 30 days?: No Contact w/someone who lives/traveled outside US past 30 days?: No Exposure to someone with infectious disease in past 14 days?: No Do you have a fever (greater than 100.4 F or 38 C)?: No Have you tested positive for COVID-19: No Exposed to someone with COVID-19 in past 14 days?: No Do you have a sore throat?: No Do you have a cough?: No Do you have any weakness?: No Do you have any diarrhea?: No Are you experiencing any unusual bleeding?: No Do you have any muscle aches/pain?: No Do you have any abdominal pain?: No Are you experiencing loss of taste or smell?: No [facility] Anesthesia Checklist Patient Identification Patient Identification: Arm Band and Family Structural Data Planned Operative Procedure/s: Lap Sheryl Verified Documents: Surgical Consent NPO Status Verified Time NPO: 00:00 Additional verifications Patient : No Anesthesia Reactions: No Hx Blood Transfusions: No Blood Transfusion Reaction: No Cephalosporin Allergy: No Previous Colonoscopy: No Airway Assessment Mallampati Score:: Class II TMJ Mobility Assessed: Yes Dentition: Good Dentition Neurological Assessment Level of Consciousness: Awake, Alert, Appropriate and Follows Commands Hx Seizures: No Numbness or tingling in extremities: No Anesthesia Plan Anesthesia Risk discussed: Yes ASA Class: II Anesthesia Type: General
[2025-01-12] MEDS: CLINDAMYCIN PHOSPHATE/D5W 900 MG/50 ML PIGGYBACK 50 MG (07:05)
[2025-01-12] MEDS: LIDOCAINE 1% 20ML MDV 20 ML (07:17)
--- NOTE | 2025-01-12 08:08 | EXP.OP.NOTE ---
Date of procedure: 01/12/25 Pre-op Diagnosis:: Symptomatic cholelithiasis Post-op Diagnosis:: Chronic calculus cholecystitis Procedure performed:: Laparoscopic cholecystectomy Surgeon:: Elio Cuevas MD JUNIOR MANUFACTURING ENGINEER:: Arnulfo Kumari Anesthesia: GETA Estimated blood loss (mL): 15 Operative findings:: Moderate pericholecystic fat stranding Friable serosal margin Infundibular thickening Operative note:: After informed consent was obtained, the patient was taken to the operating room and placed in the supine position. General anesthesia was induced and the abdomen was prepped and draped in a sterile fashion. After infiltration with local anesthetic an infraumbilical incision was made. A Veress needle was placed in position. The abdomen was insufflated. A 5 mm optical trocar was placed in position. Under direct visualization, a 12 mm trocar was placed in the subxiphoid position and 2 additional 5 mm trocars were placed in the right upper quadrant. The gallbladder was elevated up and over the liver margin. The tissue around the cystic duct was carefully dissected. 3 clips were placed proximally and the duct was transected with harmonic jc. Harmonic jc were then utilized to dissect the gallbladder away from the liver margin with careful attention to the control of the cystic artery. The gallbladder was placed in a retrieval bag and removed through the subxiphoid trocar site. The right upper quadrant was thoroughly irrigated. No active bleeding or bile leak was noted. Fascia at the subxiphoid trocar site was reapproximated utilizing 0 Ethibond. The remaining trocars were removed. All wounds were irrigated and skin was closed with 4-0 Monocryl in an interrupted mattress fashion to facilitate hemostasis. The patient's anesthetic agents were reversed and extubation was completed prior to transfer to recovery in stable condition. Condition: stable Disposition: PACU Specimens:: Gallbladder and contents Complications:: No immediate
--- NOTE | 2025-01-12 08:16 | EXP.ANES.I ---
[facility] Anesthesia Record Part I Anesthesia Record I Intake, IV Amount: 700 Hydration: Adequate Estimated blood loss (mL): 15 Urine output (mL): 0 Blood Products used (#): none Blood Pressure: 139/66 SaO2: 94 Pulse Rate: 58 Airway Patency: Patent Respiratory Rate: 12 Temperature: 99 F Patient is:: Drowsy and Stable Stable to PACU at:: 08:11
[2025-01-12] MEDS: MORPHINE 2MG/ML SYRINGE 1 MG IV ×2 (08:46→08:53)
[2025-01-12] MEDS: HYDROMORPHONE 2MG/ML SYRINGE 0.5 MG IV ×2 (08:56→09:08)
[2025-01-12] MEDS: ONDANSETRON 4MG/2ML VIAL 4 MG IV (08:59)
--- NOTE | 2025-01-13 10:32 | EXP.ANES.II ---
[facility] Anesthesia Record Part II Anesthesia Record Part II Discharge Time: 09:11 Destination: Surgical Day Care (OP Surgery) PACU nurse assessment reviewed?: Yes Patient Condition:: Good Anesthesia Complications:: None Swallowing reflex intact?: Yes Airway Patency: Patent Cyanosis?: No Blood Pressure: 129/47 SaO2: 93 Respiratory Rate: 16 Pulse Rate: 64 Temperature: 97.6 F Mental Status: Alert & Oriented Pain level:: 5 Nausea and/or vomitting:: None Intake, IV Amount: 0 Hydration: Adequate
[2025-01-13 10:33] VITALS: BP 129/47; PULSE 64; RESP 16; TEMP 36.4; O2SAT 93
== END 2025-01-12 09:53 | disposition home or self-care (01) ==
PROVIDERS: Nurse Anesthetist, Certified Registered; PCP Family Medicine; Visit Provider Surgery
PROC: 0FT44ZZ Resection of Gallbladder, Percutaneous Endoscopic Approach (ICD-10-PCS; CPT 47562; principal; 2025-01-12 07:30)
DX: K80.10 Calculus of gallbladder with chronic cholecystitis without obstruction (principal)
CPT/HCPCS: 47562; 96374; J0736; J1100; J1171; J2250; J2270; J2405; J3010; J7030

== ENCOUNTER 2025-02-01 07:34 | Day surgery (SDC) | payer OTHER, SELFPAY ==
[2025-02-01 08:14] VITALS: BMI 22.8
[2025-02-01 08:22] VITALS: BP 116/64; PULSE 67; RESP 18; TEMP 36.3; O2SAT 96
[2025-02-01 08:29] LABS: Urine Pregnancy, HCG Qual. Negative (Negative)
--- NOTE | 2025-02-01 08:45 | P.PNANES_ITS ---
[facility] Disclaimer: The information contained in this section may have been updated after the patient was seen, as this information can be updated by other users. Medical History Right upper quadrant pain Generalized anxiety disorder Major depressive disorder Surgical History History of laparoscopic cholecystectomy History of bilateral tubal ligation History of D&C History of endometrial ablation Family History Other Diabetes Social History Smoking Status: Current every day smoker tobacco type: cigarettes packs per day: 1 alcohol intake: never substance use type: denies use current occupational status: employed Travel in the last 8 weeks: Inside the [place] household members: family housing: house number of children: 2 Have you lived/traveled outside US in past 30 days?: No Contact w/someone who lives/traveled outside US past 30 days?: No Exposure to someone with infectious disease in past 14 days?: No Do you have a fever (greater than 100.4 F or 38 C)?: No Have you tested positive for COVID-19: No Exposed to someone with COVID-19 in past 14 days?: No Do you have a sore throat?: No Do you have a cough?: No Do you have any weakness?: No Do you have any diarrhea?: No Are you experiencing any unusual bleeding?: No Do you have any muscle aches/pain?: No Do you have any abdominal pain?: No Are you experiencing loss of taste or smell?: No [facility] Anesthesia Checklist Patient Identification Patient Identification: Arm Band and Family Structural Data Admitted From: Home Planned Operative Procedure/s: EGD Consent for Planned Operative Procedure(s) Verified: Yes Verified Documents: Surgical Consent and History and Physical NPO Status Verified Time NPO: 00:00 Additional verifications Patient : No Anesthesia Reactions: No Hx Blood Transfusions: No Blood Transfusion Reaction: No Cephalosporin Allergy: No Previous Colonoscopy: Yes Airway Assessment Mallampati Score:: Class I C-Spine Mobility Assessed: Yes TMJ Mobility Assessed: Yes Dentition: Good Dentition Neurological Assessment Level of Consciousness: Alert, Appropriate and Follows Commands Hx Seizures: No Numbness or tingling in extremities: No Anesthesia Plan Anesthesia Risk discussed: Yes ASA Class: I Anesthesia Type: MAC Preoperative Comments Pre-Operative Comments: Difficult swallowing.
--- NOTE | 2025-02-01 08:47 | P.HP_ITS ---
History of Present Illness *Admission Date: 02/01/25 *Reason for visit:: Epigastric pain, nausea, vomiting, regurgitation and d ysphagia *History of present illness: Mrs. Felix is a 49-year-old female who is here for diagnostic upper endoscopy secondary to epigastric abdominal pain, nausea, vomiting, dysphagia and food regurgitation. The examination is deemed medically necessary for diagnostic EGD. The patient has been seen, interviewed and examined prior to the procedure by both myself and the anesthesia provider. [facility] Disclaimer: The information contained in this section may have been updated after the patient was seen, as this information can be updated by other users. Medical History Right upper quadrant pain Generalized anxiety disorder Major depressive disorder Surgical History History of laparoscopic cholecystectomy History of bilateral tubal ligation History of D&C History of endometrial ablation Family History Other Diabetes Social History Smoking Status: Current every day smoker tobacco type: cigarettes packs per day: 1 alcohol intake: never substance use type: denies use current occupational status: employed Travel in the last 8 weeks: Inside the [place] household members: family housing: house number of children: 2 Have you lived/traveled outside US in past 30 days?: No Contact w/someone who lives/traveled outside US past 30 days?: No Exposure to someone with infectious disease in past 14 days?: No Do you have a fever (greater than 100.4 F or 38 C)?: No Have you tested positive for COVID-19: No Exposed to someone with COVID-19 in past 14 days?: No Do you have a sore throat?: No Do you have a cough?: No Do you have any weakness?: No Do you have any diarrhea?: No Are you experiencing any unusual bleeding?: No Do you have any muscle aches/pain?: No Do you have any abdominal pain?: No Are you experiencing loss of taste or smell?: No Other Medical History Have you received the Flu Vaccine for this season: No Have you received the Pneumonia Vaccine: No Review of Systems Review of Systems Review of systems (narrative): Negative *Cardiovascular Comments: Negative *Gastrointestinal Comments: Negative *Genitourinary Comments: Negative *Musculoskeletal Comments: Negative *Neurologic Comments: Negative Meds Home Medications and Allergies Home Medications ?Medication ?Instructions ?Recorded ?Confirmed ?Type omeprazole magnesium 20 mg 20 mg PO DAILY 11/07/18 01/25/25 History tablet,delayed release (Prilosec OTC) fluoxetine 20 mg capsule 20 mg PO DAILY 06/15/24 01/25/25 History lamotrigine 100 mg tablet 100 mg PO DAILY 06/15/24 01/25/25 History progesterone micronized 100 mg 100 mg PO DAILY 21 days #21 caps 06/15/24 01/25/25 Rx capsule (Prometrium) trazodone 50 mg tablet 50 mg PO DAILY PRN depression 06/15/24 01/25/25 History estradiol 2 mg tablet (Estrace) 2 mg PO DAILY #30 tabs 07/20/24 01/25/25 Rx propranolol 20 mg tablet 20 mg PO BID 01/04/25 01/25/25 History New Prescriptions to Start Prescriptions: Allergies Allergy/AdvReac Type Severity Reaction Status Date / Time Penicillins Allergy Mild Hives Verified 02/01/25 08:20 Exam Data for Last 24 hours Vital signs and Labs for Last 24 Hours: Temp Pulse Resp BP Pulse Ox O2 Del Method 97.4 F L 67 18 116/64 96 Room Air 02/01/25 08:22 02/01/25 08:22 02/01/25 08:22 02/01/25 08:22 02/01/25 08:22 02/01/25 08:22 Laboratory Results - last 24 hr 02/01/25 08:15: Urine HCG, Qual Negative I & O for Last 24 hours: Intake & Output 01/29/25 01/30/25 01/31/25 02/01/25 23:59 23:59 23:59 23:59 Weight 150 lb *Routine HEENT Exam Head: Present normocephalic Eye: Present EOMI and PERRL ENT: Present mucous membranes moist *Routine Neck Exam Neck: Present supple *Routine Respiratory Exam Respiratory: Present CTA bilaterally *Routine Cardiovascular Exam Cardiovascular: Present RRR *Routine Abdominal Exam Abdominal: Present soft and normoactive bowel sounds; Absent tenderness *Routine Rectal Exam Rectal:: deferred *Routine Genitalia Exam Genitalia:: deferred *Routine Extremities Exam Extremities: Absent cyanosis, clubbing or edema *Routine Skin Exam Skin: Present warm; Absent rash *Routine Neurological Exam Neurological: Present alert and oriented X3 Assessment and Plan *Assessment and plan (1) Epigastric pain: Status: Acute Category: Medical Code(s): R10.13 - Epigastric pain (2) Nausea & vomiting: Status: Acute Category: Medical Code(s): R11.2 - Nausea with vomiting, unspecified (3) Dysphagia: Status: Acute Category: Medical Code(s): R13.10 - Dysphagia, unspecified (4) Regurgitation of food: Status: Acute Category: Medical Code(s): R11.10 - Vomiting, unspecified (5) Bloating: Status: Acute Category: Medical Code(s): R14.0 - Abdominal distension (gaseous) (6) Throat clearing: Status: Acute Category: Medical Code(s): R09.89 - Other specified symptoms and signs involving the circulatory and respiratory systems (7) Hoarseness: Status: Acute Category: Medical Code(s): R49.0 - Dysphonia Plan A/P: 1. Epigastric pain/dyspepsia with nausea, vomiting, regurgitation of food, dysphagia and bloating is the preprocedural diagnosis. The patient will be anesthetized/sedated using MAC sedation. The patient has been seen and examined. Cardiac and lung assessment prior to the examination is stable. Proceed with planned diagnostic EGD.
--- NOTE | 2025-02-01 08:48 | P.PCN_ITS ---
[facility] Procedure Note Date: 02/01/25 Time: 09:02 Procedure Note:: Upper Endoscopy Procedure Report: Esophagogastroduodenoscopy with cold biopsies and TTS balloon dilation Endoscopost: Ramone Muller II, MD Referring Physician: Savita Benitez M.D. Date of Procedure: February 01, 2025 Equipment: Olympus GIF 190 standard upper endoscope Sedation: MAC sedation Indications: Mrs. Felix is a 49-year-old female with marked dyspepsia. She reports epigastric abdominal pain, bloating, belching, nausea and intermittent food regurgitation. She reports no reflux and is on omeprazole. She does get early satiety. She does have fairly marked constipation and takes the fiber bowel regimen (MiraLAX plus fiber) daily. She states that her constipation worsened after colonoscopy in November 2024. Her colonoscopy was normal except for left-sided diverticulosis. The patient did have cholecystectomy on 01/12/2025 for symptomatic gallstones. She is still having abdominal pain but primarily midepigastric. The nausea is daily. She does report globus sensation with frequent clearance of the throat and some hoarseness. Procedure: Prior to the procedure, a history and physical exam was performed, and patient's medications and allergies were reviewed. The risks, benefits and alternatives of the sedation and procedure were discussed with the patient. All questions were answered and informed consent was obtained. The patient was brought to the procedure room. Patient identification and proposed procedure were verified by the physician and the nurse. The patient was placed in a left lateral decubitus position and the scope was passed under direct vision. Throughout the procedure, the patient's blood pressure, pulse, and oxygen saturations were monitored continuously. The upper GI endoscopy was accomplished without difficulty. The patient tolerated the procedure well. Findings: The scope was passed directly into the upper esophagus and advanced to the third portion of the duodenum. The post bulbar duodenum, ampulla and duodenal bulb were normal with normal mucosa and conniventes. The scope was withdrawn through a normal duodenal bulb and pylorus into the stomach. There was evidence of linear reactive gastropathy of the antrum with some bile reflux. The body and fundus of the stomach were normal. Biopsies were taken from the antrum and lesser curvature. Upon retroflexion there was a very small sliding 1 to 2 cm hiatal hernia. The scope was then withdrawn into the esophagus. There was a serrated Z-line and biopsies were taken at the GE junction. There was no evidence of reflux esophagitis or Givens's. There were tertiary contractions and evidence of moderate esophageal dysmotility. The entire esophagus was dilated to 60 Danish/20 mm with a TTS hydrostatic balloon. There was some resistance at the cricopharyngeus with thickening of the cricopharyngeus muscle/sphincter. The remainder of the esophageal mucosa was normal. Impression: 1. Cricopharyngeal spasm 2. Nonerosive GERD with moderate esophageal dysmotility and very small sliding hiatal hernia 3. Bile reflux with mild linear reactive gastropathy Plan: I will follow-up the biopsies. Most of her symptoms of dyspepsia are related to and driven by lower intestinal gas pressure gradients/high gas pressure buildup resulting in backflow of bile and peptic fluid from the duodenum into the stomach (duodenal reflux). This gas production (carbon dioxide, hydrogen, methane, etc.) from the lower intestinal tract is the byproduct of colonic bacterial fermentation. This colonic fermentation occurs when there is more carbohydrate (dietary starches, sugars and high residue plant fiber) substrate that does not get digested (in the middle or small intestine) or occurs when there is colonic fecal buildup and colonic bacterial overgrowth. This indeed leads to bloating and the gas pressure buildup with gas pressure gradients that do drive backflow and dyspepsia. I am going to begin Linzess for her constipation. I would consider adding promotility therapy and possibly neuromodulation for her dyspepsia. We will discuss treatment options.
[2025-02-01 08:52] VITALS: O2SAT 100
[2025-02-01 09:04] VITALS: BP 124/64; PULSE 63; RESP 18; TEMP 36.4; O2SAT 99
[2025-02-01 09:14] VITALS: BP 115/65; PULSE 65; RESP 18; O2SAT 98
[2025-02-01 09:24] VITALS: BP 117/74; PULSE 74; RESP 18; O2SAT 99
[2025-02-01 09:34] VITALS: BP 116/62; PULSE 62; RESP 18; O2SAT 98
== END 2025-02-01 09:58 | disposition home or self-care (01) ==
PROVIDERS: PCP Family Medicine; Visit Provider Internal Medicine Gastroenterology
PROC: 0DJ08ZZ Inspection of Upper Intestinal Tract, Via Natural or Artificial Opening Endoscopic (ICD-10-PCS; CPT 43239; principal; 2025-02-01 09:00)
DX: K22.4 Dyskinesia of esophagus (principal); K21.9 Gastro-esophageal reflux disease without esophagitis; K44.9 Diaphragmatic hernia without obstruction or gangrene; K31.9 Disease of stomach and duodenum, unspecified; R10.13 Epigastric pain; R11.2 Nausea with vomiting, unspecified; R13.10 Dysphagia, unspecified; R11.10 Vomiting, unspecified; R14.0 Abdominal distension (gaseous); K59.04 Chronic idiopathic constipation
CPT/HCPCS: 43239; 43249; 81025; C1726

== ENCOUNTER 2025-05-30 08:05 | Outpatient (CLI) | payer OTHER, SELFPAY ==
--- NOTE | 2025-05-30 08:11 | CT_ITS ---
FINAL REPORT TECHNIQUE: After the administration of oral and intravenous contrast, axial images were obtained through the abdomen and pelvis by computed tomography. The study was performed with techniques to keep radiation dose as low as reasonably achievable, (ALARA). Individual dose reduction techniques using automated exposure control or adjustment of mA and/or kV according to the patient's size were employed. CLINICAL HISTORY: BILE ACID ESOPHAGEAL/ ABDMNL PAIN COMPARISON: 12/31/2024 FINDINGS: Abdomen: The lung bases are clear. Bilateral subglandular breast implants are noted. The liver parenchyma is homogeneous. The gallbladder is surgically absent. The spleen, pancreas, adrenals and kidneys appear unremarkable. The aorta is normal in caliber. There is no free fluid or adenopathy. Pelvis: The appendix is normal. The urinary bladder is decompressed. The uterus is present. There is no free fluid or adenopathy. IMPRESSION: Interval cholecystectomy. No acute intra-abdominal process. Reviewed, Interpreted and Dictated by Se Diaz MD Transcribed by Allie Rader Authenticated and [facility]
--- NOTE | 2025-05-30 08:24 | XR_ITS ---
FINAL REPORT CLINICAL HISTORY: COUGH FINDINGS: CHEST 2 VIEWS PA AND LATERAL The heart is normal in size. The mediastinum is unremarkable. The lungs are clear. Bilateral subglandular breast implants are identified. There is no pneumothorax. IMPRESSION: No acute process. Reviewed, Interpreted and Dictated by Se Diaz MD Transcribed by Dorinda Childs Authenticated and [facility]
[2025-05-30] MEDS: BARIUM SULFATE(READI-CAT2);450ML BOTTLE 450 ML PO (08:29)
[2025-05-30] MEDS: IOPAMIDOL-370 (76%);100ML BOTTLE 75 ML IV (08:29)
[2025-05-30] MEDS: SODIUM CHLORIDE 0.9% 10ML SYR (RAD ONLY) 10 ML IV (08:29)
== END 2025-05-30 23:59 | disposition home or self-care (01) ==
LOC: RAD 08:06
PROVIDERS: PCP Nurse Practitioner; Visit Provider Nurse Practitioner
DX: K21.9 Gastro-esophageal reflux disease without esophagitis (principal); R10.9 Unspecified abdominal pain; R05.9 Cough, unspecified; Z98.82 Breast implant status; Z90.49 Acquired absence of other specified parts of digestive tract
CPT/HCPCS: 71046; 74177; Q9967

== ENCOUNTER 2025-06-14 06:29 | Outpatient (CLI) | payer OTHER, SELFPAY ==
--- NOTE | 2025-06-14 | CA_ITS ---
APPROVED REPORT Exam: Pharmacologic Technologist: Salena Meneses Ht: 5 ft 8 in Wt: 135 lbs BSA: 1.73 m2 HR: 63 bpm BP: 107/71 mmHg Stress Test Details Test: Lexiscan HR Resting HR: 63 bpm Max Heart Rate (APMHR): 170.298578 bpm Max HR Achieved: 87 bpm Target HR (85% APMHR): 144.730983 bpm % of APMHR: 51.18 Recovery HR: 68 bpm BP Resting BP: 107.0/71.0 mmHg Max BP: 123.0/62.0 mmHg Recovery BP: 100.0/56.0 mmHg ECG Resting ECG: Sinus rhythm, no ectopy. Stress ECG Conclusion Symptoms: Nausea, chest pain, headache Arrhythmias/Ectopy: PAC ST-T Changes: < than 1.[address] segment changes. Conclusion: Non-diagnostic ECG - Lexiscan. Aminophyline 100 mg IVP injected at recovery 13:52 minutes - Chest pain, headache, nausea resolved prior to discharge. Electronically signed by : Jeannette Joe MD 06/15/2025 13:16:11
--- NOTE | 2025-06-14 06:30 | NM_ITS ---
APPROVED REPORT Exam: Nuclear Stress Test Indication: cp..soa..palpitaitons..fatigue..dizziness Patient Location: Outpatient Stress Tech: Salena Meneses IN Tech:Alisha PalenciaGERBER RT(R)(N) Ht: 5 ft 8 in Wt: 135 lbs Bra Size: 38ddd HR: 61 bpm BP: 107/71 mmHg BSA: 1.73 m2 TID: 1.10 BMI: 20.5 History: cp..soa..palpitaitons..fatigue..dizziness Procedure: Patient received 0.4 mg of intravenous Lexiscan, resting heart rate 61 bpm, resting blood pressure 107/71 mmHg, with Lexiscan maximum heart rate achieved was 90 bpm which is 85 % of the maximum predicted heart rate and blood pressure was 113/58 mmHg. Cardiac Stress and Resting SPECT Images: Cardiac Stress and Resting SPECT images were obtained using technetium 99m Myoview 30.1 mCi stress and 10.49 mCi at rest. Resting and stress imaging in supine and prone positions demonstrate no evidence of fixed or reversible perfusion defects. Gated imaging demonstrates normal global and regional LV systolic function. LVEF is calculated at 53%. Conclusion: No evidence of fixed or reversible perfusion defects. Gated imaging demonstrates normal global and regional LV systolic function. LVEF is calculated at 53%. Electronically signed by : Jeannette Joe MD 06/14/2025 13:14:44
--- NOTE | 2025-06-14 09:30 | CA_ITS ---
APPROVED REPORT EXAM: Comprehensive 2D, Doppler, and color-flow Echocardiogram [employer] Teacher: Sherri Zelaya RVT Ht: 5 ft 6 in Wt: 150lbs BSA: 1.77 BP: 124/78 mmHg Indications: CHEST PAIN ABNORMAL EKG,DYSPENA TDS R/T IMPLANTS 2D Dimensions IVSd 0.76 cm F: 0.6-1.0 LVEF (Visual) 54.10 % PWd 0.73 cm F: 0.6 - 1.0 LA Volume 25.60 mL LVDd 3.85 cm F: 3.9 - 5.3 LA Volume Index 14.46 mL/m2 (M/F) 16-34 LVDs 2.79 cm F: 2.2 - 3.5 M-Mode Dimensions LA Diam 1.54 cm (1.9-4.0) TAPSE 1.60 (<1.7) LV Diastology E Decel Time 257 (160-240 msec) E/A Ratio 1.1 Aortic Valve CEASAR Index 1.50 cm2/m2 AoV Peak Abdirashid. 113.0 (50-130 cm/s) AO Peak GR. 5.10 mmHg AO Mean GR. 2.20 (<5 mmHg) AO VTI 19.5 (18-25 cm) CEASAR (VTI) 2.71 (2.5-4.5 cm2) Mitral Valve MV E Max Abdirashid. 68.0 (40-130 cm/s) MV A Velocity 61.0 (40-130 cm/s) E/A Ratio 1.12 MV PHT 75.0 ms Pulmonary Valve PV Peak Velocity 76.0 (50-150 cm/s) Left Ventricle The left ventricle is normal size. Left ventricular systolic function is normal. The left ventricular ejection fraction is within the normal range. There is normal left ventricular wall thickness. There is normal LV segmental wall motion. The left ventricular diastolic function is normal. LVEF is 50-55% Right Ventricle The right ventricle is normal size. The right ventricular systolic function is normal. Atria The left atrium size is normal. The right atrium size is normal. There is no color Doppler evidence of interatrial shunt. Aortic Valve The aortic valve opens well. There is no hemodynamically significant aortic valvular stenosis. Trace aortic regurgitation is present. Mitral Valve The mitral valve is normal in structure. No evidence of mitral valve stenosis. Trace mitral regurgitation is present. Tricuspid Valve The tricuspid valve leaflets are thin and pliable. Trace tricuspid regurgitation. There is insufficient TR jet to estimate RVSP. Pulmonic Valve The pulmonary valve is grossly normal in structure. Trace pulmonic valve regurgitation is present. Great Vessels The aortic root is normal in size. IVC is normal in size and collapses >50% with inspiration. Pericardium There is no pericardial effusion. Other Information Study Quality: Fair Conclusion Normal biventricular systolic function. No significant valvular stenosis or regurgitation. Electronically signed by : Jeannette Joe MD 06/16/2025 18:58:09
[2025-06-14] MEDS: ISOTOPE MYOVIEW (PER STUDY) 1 DOSE IV (09:53)
[2025-06-14] MEDS: SODIUM CHLORIDE 0.9% 10ML SYR (RAD ONLY) 10 ML IV ×2 (09:54)
== END 2025-06-14 23:59 | disposition home or self-care (01) ==
LOC: RAD 06:30
PROVIDERS: PCP Nurse Practitioner; Visit Provider Physician Assistant
DX: I49.1 Atrial premature depolarization (principal); R94.31 Abnormal electrocardiogram [ECG] [EKG]
CPT/HCPCS: 78452; 93016; 93017; 93018; 93306; A9502; J2785